=== PATIENT | male | born 1980 | race Caucasian/White ===

== ENCOUNTER → 2020-01-11 08:55 | Outpatient (BNVA) | payer OTHER, SELFPAY | PROVIDERS: Family Provider Nurse Practitioner; PCP Nurse Practitioner; Visit Provider Nurse Practitioner Family | DX: R53.83 Other fatigue (principal); N52.9 Male erectile dysfunction, unspecified; Z68.33 Body mass index [BMI] 33.0-33.9, adult; F17.220 Nicotine dependence, chewing tobacco, uncomplicated | CPT/HCPCS: 80053; 80061; 84403; 84443; 85025 ==

== ENCOUNTER → 2021-06-25 12:12 | Outpatient (BNVA) | payer OTHER, SELFPAY | PROVIDERS: Family Provider Nurse Practitioner; PCP Nurse Practitioner; Visit Provider Nurse Practitioner Family | DX: Z00.00 Encounter for general adult medical examination without abnormal findings (principal); R53.83 Other fatigue; Z13.6 Encounter for screening for cardiovascular disorders; F41.9 Anxiety disorder, unspecified | CPT/HCPCS: 80053; 80061; 82306; 82607; 84403; 84443; 85025 ==

== ENCOUNTER → 2021-07-03 08:26 | Outpatient (BNVA) | payer OTHER, SELFPAY | PROVIDERS: Family Provider Nurse Practitioner; PCP Nurse Practitioner; Visit Provider Nurse Practitioner | DX: R53.83 Other fatigue (principal); Z13.6 Encounter for screening for cardiovascular disorders | CPT/HCPCS: 80053; 80061; 82306; 82607; 84403; 84443 ==

== ENCOUNTER → 2022-03-12 11:43 | Outpatient (BNVA) | payer OTHER, SELFPAY | PROVIDERS: Family Provider Nurse Practitioner; PCP Nurse Practitioner; Visit Provider Nurse Practitioner Family | DX: F41.9 Anxiety disorder, unspecified (principal); Z13.6 Encounter for screening for cardiovascular disorders; E55.9 Vitamin D deficiency, unspecified; G47.00 Insomnia, unspecified | CPT/HCPCS: 80053; 80061; 82306; 84443; 85025 ==

== ENCOUNTER → 2022-09-13 09:59 | Outpatient (BNVA) | payer OTHER, SELFPAY | PROVIDERS: Family Provider Nurse Practitioner; PCP Nurse Practitioner; Visit Provider Nurse Practitioner Family | DX: Z00.00 Encounter for general adult medical examination without abnormal findings (principal); E78.5 Hyperlipidemia, unspecified; E55.9 Vitamin D deficiency, unspecified; F41.9 Anxiety disorder, unspecified; G47.00 Insomnia, unspecified; F17.220 Nicotine dependence, chewing tobacco, uncomplicated; Z68.32 Body mass index [BMI] 32.0-32.9, adult; K21.9 Gastro-esophageal reflux disease without esophagitis | CPT/HCPCS: 80053; 80061; 82306; 82607; 83735; 84443; 85025 ==

== ENCOUNTER → 2023-03-10 10:11 | Outpatient (BNVA) | payer OTHER, SELFPAY | PROVIDERS: Family Provider Nurse Practitioner; PCP Nurse Practitioner Family; Visit Provider Nurse Practitioner Family | DX: E78.5 Hyperlipidemia, unspecified (principal); E55.9 Vitamin D deficiency, unspecified; F41.9 Anxiety disorder, unspecified; R53.83 Other fatigue; G47.00 Insomnia, unspecified; K21.9 Gastro-esophageal reflux disease without esophagitis | CPT/HCPCS: 80053; 80061; 82306; 82607; 84403; 84443; 85025 ==

== ENCOUNTER 2024-01-28 16:43 | Emergency (ER) | payer OTHER, SELFPAY ==
[2024-01-28 16:47] VITALS: BP 203/120; PULSE 69; RESP 17; TEMP 36.3; O2SAT 98; BMI 33.4
--- NOTE | 2024-01-28 18:05 | CTR_ITS ---
PROCEDURE INFORMATION: Exam: CT Head Without Contrast Exam date and time: 01/28/2024 6:20 PM Age: 43 years old Clinical indication: Pain; Patient HX: C/O persistent headaches over the last ten months. ; Additional info: Mario/visual changes TECHNIQUE: Imaging protocol: Computed tomography of the head without contrast. Radiation optimization: All CT scans at this facility use at least one of these dose optimization techniques: automated exposure control; mA and/or kV adjustment per patient size (includes targeted exams where dose is matched to clinical indication); or iterative reconstruction. COMPARISON: No relevant prior studies available. RADIATION DOSE METRICS: Total DLP (mGy-cm): 1063.39 FINDINGS: Brain: Chronic lacunar infarcts in both basal ganglia. No CT evidence for acute ischemia, mass or hemorrhage. Sulci and ventricles are appropriate in size for age. Cerebral ventricles: See Brain finding. Paranasal sinuses: Sphenoid sinus mucous retention cyst. Mastoid air cells: Visualized mastoid air cells are well aerated. Bones: Unremarkable. No acute fracture. Soft tissues: Unremarkable. CT/CT head wo con* [id number] IMPRESSION: 1. No acute findings. 2. Bilateral chronic lacunar infarcts in the basal ganglia
[2024-01-28] MEDS: ketorolac 60 mg/2 mL INJ 30 MG IVP (18:33)
[2024-01-28] MEDS: diphenhydrAMINE 50 mg/mL SDV 1mL IVP (18:36)
[2024-01-28] MEDS: dexamethasone 10 mg/mL INJ 8 MG IVP (18:36)
[2024-01-28] MEDS: ondansetron 2 mg/ML SDV 2 mL 4 MG IVP (18:38)
[2024-01-28] MEDS: sodium chloride 0.9% 1,000 ML 999 ML IV (18:39)
[2024-01-28 18:40] VITALS: BP 171/109; PULSE 63; O2SAT 96
--- NOTE | 2024-01-28 18:42 | ED_ITS ---
HPI - Headache 2 General: Chief Complaint: Headache Stated Complaint: sent over from urgent care, migrain Time Seen by Provider: 01/28/24 18:00 Source: patient Mode of arrival: ambulatory Limitations: no limitations History of Present Illness: Patient is a 43-year-old male who presents to the emergency department, sent from urgent care, due to a headache for the past few months. He states that it was significantly worsening today, is diffuse in location. Also is noting some visual changes specifically to the left eye only, as he states he is seeing multiple different shapes. He takes sumatriptan as needed, states he was recently prescribed this by primary care. Denies any personal history of migraine headaches. He does arrive with a blood pressure of 203/120, does not appear to be on any medications for high blood pressure at this time. He notes significant nausea, denies any vomiting. Denies any focal neurological deficits. Pain is not worsened by light or sound. No other pertinent past medical history or historical factors to report at this time. MD elicited complaint: headache Onset (ago): month(s) Location: diffuse Severity: moderate Quality & Timing: throbbing and progressively worsening Relieving factors: nothing Context: occurred at rest Associated symptoms: Reports nausea; Deny chest pain, fever(s), lightheadedness, rash or vomiting Treatments prior to arrival: migraine medication Review of Systems 2 General: Reports: 10 or more systems reviewed and unremarkable except in HPI and below Const: Denies: fever(s), chills or fatigue Eyes: Reports: change in vision ENMT: Denies: throat pain, ear or mastoid pain or nasal discharge Card: Denies: chest pain, palpitations, swelling of feet/ankles or lightheadedness Resp: Denies: dyspnea, productive cough or wheezing GI: Reports: nausea; Denies: abdominal pain, vomiting, diarrhea or constipation : Denies: flank pain, difficulty urinating, dysuria or urinary frequency Musc: Denies: neck pain, back pain or joint pain Skin/Breast: Denies: rash Neuro: Reports: headache(s); Denies: numbness in extremities or weakness in extremities PFSH ED 2 PFSH: Medical History GERD (gastroesophageal reflux disease) Hyperlipidemia Insomnia Vitamin D deficiency Chewing tobacco nicotine dependence Surgical History Hx of cholecystectomy (~2009) Family History Father Diabetes Hypertension Mother Hypertension Social History Smoking and tobacco/nicotine status: unknown if used tobacco/nicotine Second hand smoke exposure: No Alcohol intake: never Substance/Drug Use: never Adopted: No Caregiver/support person: No Lives independently: Yes Household members: spouse Housing: House Marital status: Number of children: 2 service: No Current occupational status: employed Current occupation: [employer] Do you think of yourself as: Straight/Heterosexual Current gender identity: Male Physical Exam 2 Const: COMMON NORMALS: no acute distress, patient oriented x3 and no limitations GENERAL APPEARANCE: cooperative, comfortable and well developed ORIENTATION/CONSCIOUSNESS: Yes awake, Yes oriented to person, Yes oriented to place and Yes oriented to time HENMT: COMMON NORMALS: normocephalic, atraumatic and hearing grossly normal bilaterally HEAD & SCALP: normocephalic and atraumatic Eye: COMMON NORMALS: Equal, round and reactive pupils present, EOMs intact bilaterally and conjunctivae normal CONJUNCTIVA: Yes conjunctivae normal P UPIL: Yes Equal, round and reactive pupils present Neck/C-Spine: COMMON NORMALS: full ROM, supple and no JVD Resp: COMMON NORMALS: normal respiratory effort, No retractions, No use of accessory muscles and clear to auscultation bilaterally AUSCULTATION: clear to auscultation bilaterally Cardio: COMMON NORMALS: no JVD, regular rate, regular rhythm, No clicks present (Cardio), No murmurs present (Cardio) and No rub (Cardio) RATE: r egular rate RHYTHM: regular rhythm GI: COMMON NORMALS: Normal to inspection, nondistended, normoactive bowel sounds present, Soft to palpation and non-tender AUSCULTATION: Yes normoactive bowel sounds PALPATION: Yes Soft to palpation RECTAL EXAM: Yes deferred Extremity: COMMON NORMALS: normal to inspection, full ROM and capillary refill normal Neuro: COMMON NORMALS: patient oriented x3, CN's II-XII intact bilaterally, moves all extremities, no focal motor deficits and no sensory deficits noted SENSORIUM/ORIENTATION: Yes oriented to person, Yes oriented to place and Yes oriented to time Psych: COMMON NORMALS: mental status grossly normal and Normal thought process present THOUGHT PROCESS: Normal thought process present Skin: COMMON NORMALS: no rashes or lesions noted GENERAL SKIN EXAM: no rashes or lesions noted Course 2 Vital Signs: Vital signs: Vital Signs Temperature 97.4 F L 01/28/24 20:28 Pulse Rate 63 01/28/24 20:28 Respiratory Rate 17 01/28/24 20:28 Blood Pressure 171/109 01/28/24 20:28 Pulse Oximetry 96 01/28/24 20:28 Oxygen Delivery Me thod Room Air 01/28/24 16:47 MDM - Headache Medical Decision Making Patient presented with a couple months of a worsening headache, does not take any medication at this time however was recently prescribed sumatriptan as needed for potential migraine headaches. Patient was initially given a migraine cocktail that did not improve his symptoms. A head CT was obtained that did not demonstrate any acute abnormalities. On arrival his blood pressure was noted to be significantly elevated at 200 systolic, he has not treated with any hypertensive at this time. Because of this I ordered some basic labs including troponin and CBC. In addition I wanted to check his kidney function for any endorgan damage. He was started on hydralazine and mag sulfate drip, and his blood pressure was noted to steadily decline. In addition to this decline, he does note that his headache was improving and he was having less visual changes. Troponin was negative, EKG showed sinus bradycardia rate [address] segment changes, and the rest of his workup was negative with no signs of endorgan damage. I will start him on initial prescription of lisinopril and he is to monitor his blood pressures closely until follow-up with primary care early next week. I do believe his headache likely vascular in nature due to his undiagnosed hypertension, and do not believe his headaches to be of neurological origin based on workup and negative neurological examination. However I did have a thorough conversation with him in regards to reasons to return, and he will start lisinopril and follow-up with primary care early next week as discussed. This case was discussed closely with Dr. Key, supervising ED physician, who agrees with disposition at this time. Lab Data 01/28/24 18:17 01/28/24 18:[address] 01/28/24 18:05 IMPRESSION: 1. No acute findings. 2. Bilateral chronic lacunar infarcts in the basal ganglia Laboratory Results WBC 8.70 10^3/uL (3.29-11.43) 01/28/24 18:17 RBC 5.43 10^6/uL (3.85-5.65) 01/28/24 18:17 Hgb 15.50 g/dL (11.27-16.99) 01/28/24 18:17 Hct 45.4 % (37-53) 01/28/24 18:17 MCV 83.6 fl (82-101) 01/28/24 18:17 MCH 28.5 pg (27-33) 01/28/24 18:17 MCHC 34.1 g/dL (30-55) 01/28/24 18:17 RDW 12.4 % (12.1-15.1) 01/28/24 18:17 Plt Count 211 10^3/cmm (157-399) 01/28/24 18:17 MPV 9.5 fL (7.4-10.4) 01/28/24 18:17 Neut % (Auto) 66.7 % 01/28/24 18:17 Lymph % (Auto) 25.1 % 01/28/24 18:17 [place] % (Auto) 6.6 % 01/28/24 18:17 Eos % (Auto) 0.7 % 01/28/24 18:17 Baso % (Auto) 0.6 % 01/28/24 18:17 Neut # (Auto) 5.81 10^3/uL (1.8-7.7) 01/28/24 18:17 Lymph # (Auto) 2.2 10^3/uL (0.8-4.8) 01/28/24 18:17 [place] # (Auto) 0.6 10^3/uL (0.2-0.9) 01/28/24 18:17 Eos # (Auto) 0.1 10^3/uL (0.0-0.8) 01/28/24 18:17 Baso # (Auto) 0.1 10^3/uL (0.0-0.1) 01/28/24 18:17 Nucleated RBC % (auto) 0 % 01/28/24 18:17 Nucleated RBCs # 0.0 /100WBC 01/28/24 18:17 Sodium 139 mmol/L (136-145) 01/28/24 18:17 Potassium 3.7 mmol/L (3.5-5.1) 01/28/24 18:17 Chloride 100 mmol/L (98-107) 01/28/24 18:17 Carbon Dioxide 27 mmol/L (22-29) 01/28/24 18:17 Anion Gap 15.7 (5-19) 01/28/24 18:17 BUN 13 mg/dL (6-20) 01/28/24 18:17 Creatinine 0.7 mg/dL (0.7-1.2) 01/28/24 18:17 GFR Calculation 123.1 mL/min (90-130) 01/28/24 18:17 Glucose 94 mg/dL (65-115) 01/28/24 18:17 Calculated Osmolality 288 mOsm/kg (285-295) 01/28/24 18:17 Calcium 9.1 mg/dL (8.5-10.5) 01/28/24 18:17 Total Bilirubin 0.7 mg/dL (0.15-1.2) 01/28/24 18:17 AST 26 U/L (0-40) 01/28/24 18:17 ALT 45 U/L (0-41) H 01/28/24 18:17 Alkaline Phosphatase 107 U/L (40-130) 01/28/24 18:17 Troponin T Baseline 16 ng/L (0-15) H 01/28/24 18:17 Total Protein 7.4 g/dL (6.6-8.7) 01/28/24 18:17 Albumin 4.7 g/dL (3.5-5.2) 01/28/24 18:17 Globulin 2.7 g/dL (1.3-4.6) 01/28/24 18:17 All radiology interpretation(s) finalized by discharge Discharge Plan Discharge Patient Disposition: Home Clinical Impression: Hypertensive urgency, Headache Condition: Stable Prescriptions: New lisinopril 20 mg tablet 20 mg PO DAILY Qty: 20 0RF No Action sertraline 100 mg tablet See Rx Instructions .ROUTE .COMPLEX Qty: 180 0RF Dose Instruction: TAKE TWO TABLETS BY MOUTH DAILY Rx Instructions: TAKE TWO TABLETS BY MOUTH DAILY imetrex PO cetirizine 10 mg tablet See Rx Instructions .ROUTE .COMPLEX Qty: 90 1RF Dose Instruction: TAKE ONE TABLET BY MOUTH DAILY Rx Instructions: TAKE ONE TABLET BY MOUTH DAILY Discharge Orders: Discharge ED (Routine); Ordered 01/28/24 Ordered By: Satnam Marroquin Referrals: Manuel Zepeda, NARINDER-C [Family Provider] - Sarika Mac FNP [Primary Care Provider] - Discharge Diet: As Directed Discharge Activity: Increase activity as tolerated Patient Instructions: Hypertension (ED) Activity Restrictions/Additional Instructions: Monitor your blood pressure at home as discussed to report to your primary care provider next week. Lisinopril as prescribed. Please follow-up with primary care next week as discussed. Return with any new or concerning symptoms. Coding Level of Care Code ED Flake [employer] for [employer]
--- NOTE | 2024-01-28 19:24 | ECG_ITS ---
[facility] Test Date: 2024-01-28 Pat Name: Berhane Garcia Department: Room: Gender: Male Nursing Associate: : 1980 Requested By: Satnam Sotelo Order Number: [id number] Yoder MD: Joshua Briscoe M.D. Measurements Intervals [place] Rate: 55 P: 47 MA: 150 QRS: 36 QRSD: 96 T: 32 QT: 442 QTc: 424 Interpretive Statements SINUS BRADYCARDIA Otherwise normal No previous ECG available for comparison Electronically Signed On 01-29-2024 13:28:14 CDT by Joshua Briscoe M.D. [email or web address]
[2024-01-28 19:33] LABS: Basophils # 0.1 10^3/uL (0.0-0.1); Basophils % 0.6 %; Eosinophils # 0.1 10^3/uL (0.0-0.8); Eosinophils % 0.7 %; Hematocrit 45.4 % (37-53); Lymphocytes # 2.2 10^3/uL (0.8-4.8); Lymphocytes % 25.1 %; Mean Corpuscular HGB Conc 34.1 g/dL (30-55); Mean Corpuscular Hemoglobin 28.5 pg (27-33); Mean Corpuscular Volume 83.6 fl (82-101); Mean Platelet Volume 9.5 fL (7.4-10.4); Monocytes # 0.6 10^3/uL (0.2-0.9); Monocytes % 6.6 %; Neutrophils # 5.81 10^3/uL (1.8-7.7); Neutrophils % 66.7 %; Nucleated Red Blood Cells % 0 %; Platelet Count 211 10^3/cmm (157-399); Red Blood Count 5.43 10^6/uL (3.85-5.65); Red Cell Distribution Width 12.4 % (12.1-15.1)
[2024-01-28 19:46] LABS: Troponin(5th) Baseline 16 ng/L (0-15)
[2024-01-28] MEDS: magnesium sulfate premix 2 GM/50 ML PIGGYBACK IV (19:49)
[2024-01-28] MEDS: hyDRALAzine 20 mg/mL INJ 1 mL 10 MG IVP (19:49)
[2024-01-28 19:54] LABS: Alanine Aminotransferase 45 U/L (0-41); Albumin Level 4.7 g/dL (3.5-5.2); Alkaline Phosphatase 107 U/L (40-130); Anion Gap 15.7 (5-19); Aspartate Amino Transferase 26 U/L (0-40); Blood Urea Nitrogen 13 mg/dL (6-20); Calcium 9.1 mg/dL (8.5-10.5); Carbon Dioxide 27 mmol/L (22-29); Chloride 100 mmol/L (98-107); Creatinine Clr Calc Pharmacy 155.8082; Globulin 2.7 g/dL (1.3-4.6); Glomerular Filtration Rate 123.1 mL/min (90-130); Glucose 94 mg/dL (65-115); Osmolality Calculated 288 mOsm/kg (285-295); Potassium 3.7 mmol/L (3.5-5.1); Sodium 139 mmol/L (136-145); Total Bilirubin 0.7 mg/dL (0.15-1.2); Total Protein 7.4 g/dL (6.6-8.7)
[2024-01-28 20:28] VITALS: BP 171/109; PULSE 63; RESP 17; TEMP 36.3; O2SAT 96
== END 2024-01-28 20:29 | disposition home or self-care (01) ==
PROVIDERS: Emergency Provider Physician Assistant; Family Provider Nurse Practitioner; PCP Nurse Practitioner Family
DX: I16.0 Hypertensive urgency (principal); R51.9 Headache, unspecified; E78.5 Hyperlipidemia, unspecified
CPT/HCPCS: 70450; 80053; 84484; 85025; 93005; 96361; 96365; 96375; 99285; J0360; J1100; J1200; J1885; J2405; J3475; J7030

== ENCOUNTER 2024-02-01 22:40 | Emergency (ER) | payer OTHER, SELFPAY ==
[2024-02-01 22:46] VITALS: BP 215/132; PULSE 66; RESP 16; TEMP 36.7; O2SAT 99
--- NOTE | 2024-02-01 23:42 | ED_ITS ---
HPI - Headache General: Chief Complaint: Headache Stated Complaint: High BP believes carbon monoxide poisioning Time Seen by Provider: 02/01/24 23:29 History of Present Illness: Patient resents to the ER with high blood pressure and headache. Patient was here approximately 3 days ago for exact same symptoms and was treated with a concoction of medicines which eventually lowered his blood pressure and improved his headache but it did not go away patient was sent home on 20 mg lisinopril and has been taking it every single day and his blood pressure climbed right back up to 215/132. 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 Review of Systems General: Reports: 10 or more systems reviewed and unremarkable except in HPI and below PFSH ED PFSH: Medical History GERD (gastroesophageal reflux disease) Hyperlipidemia Insomnia Vitamin D deficiency Chewing tobacco nicotine dependence Surgical History Hx of cholecystectomy (~2009) Family History Father Diabetes Hypertension Mother Hypertension Social History Smoking and tobacco/nicotine status: unknown if used tobacco/nicotine Second hand smoke exposure: No Alcohol intake: never Substance/Drug Use: never Adopted: No Caregiver/support person: No Lives independently: Yes Household members: spouse Housing: House Marital status: Number of children: 2 service: No Current occupational status: employed Current occupation: railroad Do you think of yourself as: Straight/Heterosexual Current gender identity: Male Physical Exam Const: COMMON NORMALS: no acute distress, average body habitus, patient oriented x3, no limitations, healthy appearing, alert and well nourished HENMT: COMMON NORMALS: normocephalic, atraumatic, hearing grossly normal bilaterally, external ears normal, Normal external nose present and moist oral mucous membranes HEAD & SCALP: normocephalic and atraumatic NOSE: Normal external nose present EXTERNAL EAR: Yes external ears normal Neck/C-Spine: COMMON NORMALS: no JVD Chest: COMMONS NORMALS: normal inspection of the chest and normal palpation of entire chest wall Resp: COMMON NORMALS: normal respiratory effort, No retractions, No use of accessory muscles and clear to auscultation bilaterally AUSCULTATION: clear to auscultation bilaterally Cardio: COMMON NORMALS: no JVD, regular rate, regular rhythm, S1 normal heart sound present, S2 normal heart sound present, No gallops present (Cardio), No clicks present (Cardio), No murmurs present (Cardio) and No rub (Cardio) RATE: regular rate RHYTHM: regular rhythm HEART SOUNDS: S1 normal heart sound present and S2 normal heart sound present GI: COMMON NORMALS: Normal to inspection, nondistended, normoactive bowel s ounds present, Soft to palpation, non-tender, No hepatosplenomegaly present and no masses PALPATION: Yes Soft to palpation and Yes No hepatosplenomegaly present Neuro: COMMON NORMALS: patient oriented x3 SENSORIUM/ORIENTATION: Yes alert Course Vital Signs: Vital signs: Vital Signs Temperature 98.0 F 02/01/24 22:46 Pulse Rate 66 02/01/24 22:46 Respiratory Rate 16 02/01/24 22:46 Blood Pressure 215/132 02/01/24 22:46 Pulse Oximetry 99 02/01/24 22:46 Oxygen Delivery Me thod Room Air 02/01/24 22:46 MDM - Headache Medical Decision Making Reviewed note from 3 days ago and results of lab work, Patient was given 20 mg of hydralazine and 30 mg of Toradol IV, an ABG was obtained which was normal, these improved patient's blood pressure to 145/105 and decreases headache down to a 3. Patient will be discharged home we will add HCTZ to patient's blood pressure regimen at 25 mg. Differential Diagnosis Likely headache Medical Records I reviewed the patient's medical records. Lab Data I reviewed the patient's lab results. Laboratory Results Specimen Type Arterial 02/01/24 23:55 Sample Site Radial, left 02/01/24 23:55 ABG pH 7.40 (7.35-7.45) 02/01/24 23:55 ABG pCO2 40.1 mmHg (35-45) 02/01/24 23:55 ABG pO2 71.3 mmHg (80.0-100.0) L 02/01/24 23:55 ABG PO2/FiO2 Ratio 339 02/01/24 23:55 ABG HCO3 24.6 mmol/L (22-26) 02/01/24 23:55 ABG O2 Saturation 96.4 02/01/24 23:55 ABG Base Excess -0.3 mmol/L (-2.0-2.0) 02/01/24 23:55 Byron Test Pos 02/01/24 23:55 A-a O2 Gradient 3.8 mmHg (5-10) L 02/01/24 23:55 Hematocrit 46.8 % (42-52) 02/01/24 23:55 Hgb O2 Saturation 95.3 % (95-100) 02/01/24 23:55 Carboxyhemoglobin 1.1 %THgb (0.4-20.1) 02/01/24 23:55 Methemoglobin 0.0 % (0.4-1.5) L 02/01/24 23:55 Total Hemoglobin 15.3 g/dL (14-18) 02/01/24 23:55 Sodium 140.0 mmol/L (131-143) 02/01/24 23:55 Potassium 3.6 mmol/L (3.5-5.0) 02/01/24 23:55 Glucose 108.0 mg/dL (70-115) 02/01/24 23:55 Ionized Calcium 1.2 mmol/L (1.1-1.4) 02/01/24 23:55 O2 Delivery Device None 02/01/24 23:55 FiO2 21.0 % 02/01/24 23:55 Infrastructure Director ID [email or web address] 02/01/24 23:55 No radiology studies performed this visit Discharge Plan Discharge Patient Disposition: Home Clinical Impression: Headache Qualifiers: Headache type: unspecified Headache chronicity pattern: chronic headache Intractability: intractable Qualified Code(s): R51.9 - Headache, unspecified Hypertension Qualifiers: Hypertension type: unspecified Qualified Code(s): I10 - Essential (primary) hypertension Condition: Stable Prescriptions: New hydrochlorothiazide 25 mg tablet 25 mg PO QAM Qty: 30 0RF No Action sertraline 100 mg tablet See Rx Instructions .ROUTE .COMPLEX Qty: 180 0RF Dose Instruction: TAKE TWO TABLETS BY MOUTH DAILY Rx Instructions: TAKE TWO TABLETS BY MOUTH DAILY imetrex PO cetirizine 10 mg tablet See Rx Instructions .ROUTE .COMPLEX Qty: 90 1RF Dose Instruction: TAKE ONE TABLET BY MOUTH DAILY Rx Instructions: TAKE ONE TABLET BY MOUTH DAILY lisinopril 20 mg tablet 20 mg PO DAILY Qty: 20 0RF Discharge Orders: Discharge ED (Routine); Ordered 02/02/24 Ordered By: Melecio Villa Referrals: Sarika Mac FNP [Primary Care Provider] - 1 week Patient Instructions: Hypertension Activity Restrictions/Additional Instructions: Your ABG did not show any elevation of the carbon oxide level in your blood above normal. Your blood pressure did improve which improved your headache. We will add hydrochlorothiazide 25 mg onto your blood pressure regimen at 1 pill in the morning along with your lisinopril 20 mg your prescribed at your previous visit. Please keep a blood pressure log and follow-up with your family practice doctor within the next 7 days for further evaluation and treatment. Coding Level of Care Code ED [employer] for [employer]
[2024-02-01 23:51] VITALS: BP 148/93; PULSE 69; O2SAT 96
[2024-02-01] MEDS: ketorolac 30 mg/mL INJ IVP (23:57)
[2024-02-01] MEDS: hyDRALAzine 20 mg/mL INJ 1 mL IVP (23:58)
[2024-02-02 00:08] LABS: ABG PCO2 40.1 mmHg (35-45); Alveolar-Arterial Oxygen Gradi 3.8 mmHg (5-10); Arterial Blood Gas Hematocrit 46.8 % (42-52); Base Excess ABG -0.3 mmol/L (-2.0-2.0); Blood Gas Allen Test Pos; Blood Gas Sample Type Arterial; Carboxyhemoglobin 1.1 %THgb (0.4-20.1); HCO3 ABG 24.6 mmol/L (22-26); HGB O2 Sat 95.3 % (95-100); Ionized Calcium Level - ABG 1.2 mmol/L (1.1-1.4); Oxygen Saturation ABG 96.4; PO2 ABG 71.3 mmHg (80.0-100.0); Potassium Level - ABG 3.6 mmol/L (3.5-5.0); Total Hemoglobin 15.3 g/dL (14-18)
[2024-02-02 00:09] LABS: Blood Gas Sample Site Radial, left; PO2 FiO2 Ratio Arterial Blood 339
[2024-02-02 00:21] VITALS: BP 158/101; PULSE 66; O2SAT 97
[2024-02-02 00:51] VITALS: BP 145/105; PULSE 64; O2SAT 98
[2024-02-02 01:21] VITALS: BP 139/88; PULSE 63; O2SAT 96
== END 2024-02-02 01:59 | disposition home or self-care (01) ==
PROVIDERS: Emergency Provider Emergency Medicine; PCP Nurse Practitioner Family
DX: R51.9 Headache, unspecified (principal); I10 Essential (primary) hypertension; E78.5 Hyperlipidemia, unspecified
CPT/HCPCS: 36600; 80051; 82330; 82805; 96374; 96375; 99284; J0360; J1885

== ENCOUNTER 2024-02-03 13:49 | Outpatient (CLI) | payer OTHER, SELFPAY ==
--- NOTE | 2024-02-03 13:56 | XRR_ITS ---
PROCEDURE INFORMATION: Exam: XR Cervical Spine Exam date and time: 02/03/2024 2:03 PM Age: 43 years old Clinical indication: Cervicalgia; Patient HX: Neck pain that radiates to bilateral shoulders x 1 yr; No known injury; Additional info: M54.2 - cervicalgia TECHNIQUE: Imaging protocol: Radiologic exam of the cervical spine. Views: 2 or 3 views. COMPARISON: CT head wo con* [id number] 01/28/2024 6:20 PM FINDINGS: Bones/joints: Normal. No acute fracture. Normal alignment. Soft tissues: Unremarkable. XR/XR cervical spine 3V* [id number] IMPRESSION: No acute findings.
== END 2024-02-03 13:50 | disposition home or self-care (01) ==
LOC: RAD 13:52
PROVIDERS: PCP Nurse Practitioner Family; Visit Provider Nurse Practitioner Family
DX: M54.2 Cervicalgia (principal)
CPT/HCPCS: 72040